=== PATIENT | male | born 1980 | race Caucasian/White ===

== ENCOUNTER 2019-01-25 19:11 | Emergency (ER) | payer SELFPAY ==
[~2019-01-25] VITALS: Ht 177.8 cm; Wt 57.7 kg
[2019-01-25 19:22] VITALS: BP 118/74
--- NOTE | 2019-01-25 19:41 | NUR ---
REQUESTING REMOVAL OF SCALP ABEL
[2019-01-25] MEDS ORDERED: BACITRACIN ZINC OINT 500U/GM, 0.9 GM ONE (20:03)
== END 2019-01-25 20:17 | disposition home or self-care (01) ==
LOC: ED 20:06
DX: S01.312D Laceration without foreign body of left ear, subsequent encounter (principal); X58.XXXD Exposure to other specified factors, subsequent encounter
CPT/HCPCS: 99283